=== PATIENT | male | born 1945 | race Caucasian/White ===

== ENCOUNTER → 2017-05-11 | Outpatient (CLI) | payer BC ==
[2017-05-11 12:58] LABS: BASO % 0.5 %; BASO ABS # 0.02 K/uL (0-0.2); COMPLETE YES; EOS % 1.2 %; HEMATOCRIT 43.1 % (42-52); LYMPH % 22.9 %; LYMPH ABS # 0.97 K/uL (1.2-3.4); MEAN CELL VOLUME 94.3 fL (80-100); MEAN CORPUSCULAR HEMOGLOBIN 32.6 pg (25-34); MEAN CORPUSCULAR HGB CONC 34.6 g/dl (32-36); MEAN PLATELET VOLUME 11.6 fL (7.4-10.4); MONO % 5.2 %; NEUT % 70.2 %; PLATELET COUNT 189 K/uL (130-400); RED BLOOD COUNT 4.57 M/uL (4.7-6.1); WHITE BLOOD COUNT 4.24 K/uL (4.8-10.8)
[2017-05-11 13:14] LABS: ALT/SGPT 20 U/L (12-78); AST/SGOT 15 U/L (15-37); BLOOD UREA NITROGEN 19 mg/dl (7-18); BUN/CREATININE RATIO 21.1 (10-20); CALCIUM 9.3 mg/dl (8.5-10.1); CARBON DIOXIDE 27 mmol/L (21-32); CHLORIDE 106 mmol/L (98-107); CHOLESTEROL 219 mg/dl (0-200); GLUCOSE 93 mg/dl (70-99); POTASSIUM 3.7 mmol/L (3.5-5.1); SODIUM 141 mmol/L (136-145); TRIGLYCERIDES 157 mg/dl (0-150); VERY LOW DENSITY LIPOPROT CALC 31 mg/dl
[2017-05-11 13:20] LABS: ALB/GLOB RATIO 1.5 (0.9-2); ALKALINE PHOSPHATASE 76 U/L (45-117); CHOLESTEROL/HDL RATIO 3.7; HDL CHOLESTEROL 59 mg/dl
== END | disposition home or self-care (01) ==
LOC: C.LABSPEC 12:22
PROVIDERS: ATTEND Internal Medicine
DX: E78.5 Hyperlipidemia, unspecified (principal); R53.83 Other fatigue; Z11.59 Encounter for screening for other viral diseases